=== PATIENT | male | born 1930 | race Caucasian/White ===

== ENCOUNTER → 2016-09-22 | Outpatient (CLI) | payer MEDICARE, BC ==
[2016-09-22 12:45] LABS: CH 30.9; CHCM 33.2; HCT 43.1 % (39.0-53.0); HDW 2.23; HGB 14.2 gm/dL (13.0-17.5); MCH 30.9 pg (25.0-35.0); MCV 93.7 fL (80.0-100.0); Mean Platelet Volume 7.4; RDW 12.6 % (11.5-15.5)
[2016-09-22 12:49] LABS: Calcium 9.3 mg/dL (8.4-10.2); Potassium 4.2 mmol/L (3.5-5.1); Total Bilirubin 0.7 mg/dL (0.2-1.3); Total Protein 7.4 g/dL (6.3-8.2)
[2016-09-22 14:21] LABS: Hemoglobin A1C 6.1 % (4.2-6.1)
[2016-09-27 20:02] LABS: Mercury Whole Blood < 2 mcg/L (< 11)
== END | disposition home or self-care (01) ==
LOC: LABWHC1 11:44
PROVIDERS: ATTEND Internal Medicine
DX: E11.22 Type 2 diabetes mellitus with diabetic chronic kidney disease (principal); N18.3 Chronic kidney disease, stage 3 (moderate); G62.9 Polyneuropathy, unspecified
CPT/HCPCS: 36415; 80053; 82175; 82570; 83036; 83655; 83825; 84165; 84443; 85027

== ENCOUNTER 2017-03-08 11:10 | Inpatient (IN) | payer MEDICARE, BC ==
[2017-03-08] MEDS ORDERED: ACETAMINOPHEN IV (For NPO) 1,000 MG in EMPTY BAG 1 BAG IVPB STA (11:34)
--- NOTE | 2017-03-08 11:50 | ED ---
General Adult HPI - General Chief complaint: Weakness Stated complaint: Weakness Time Seen by Provider: 03/08/17 11:33 Source: patient, RN notes reviewed, old records reviewed Mode of arrival: EMS Limitations: no limitations - History of Present Illness Initial comments: This is a 86-year-old male here for evaluation. Patient coming in for evaluation of weakness and abdominal cramping. Patient has history of diabetes type impression high cholesterol. No cough congestion, no nausea vomiting or diarrhea. No history of abdominal surgeries. Patient has mild suprapubic abdominal pain. Difficulty with urination. Patient also notes fever and sweating that started today - Related Data Home Medications Medication Instructions Recorded Confirmed Atorvastatin [Lipitor] 10 mg PO MOWEFR 02/01/17 03/08/17 Clopidogrel [Plavix] 75 mg PO DAILY 02/01/17 03/08/17 Losartan Potassium [Cozaar] 25 mg PO DAILY 02/01/17 03/08/17 Saw Brandon 500 - 1,000 mg PO DAILY PRN 02/01/17 03/08/17 metFORMIN HCL [Glucophage] 500 mg PO DAILY 02/01/17 03/08/17 Loratadine [Claritin] 10 mg PO DAILY PRN 03/08/17 03/08/17 Multivitamins, Thera [Multivitamin 1 tab PO DAILY 03/08/17 03/08/17 (formulary)] Omeprazole [PriLOSEC] 20 mg PO AC-BRKFST 03/08/17 03/08/17 Tetrahydrozoline 0.05% Ophth 1 drop BOTH EYES QID PRN 03/08/17 03/08/17 [Visine Eye Drops] Allergies Allergy/AdvReac Type Severity Reaction Status Date / Time No Known Allergies Allergy Verified 03/08/17 11:56 Review of Systems ROS Statement: Those systems with pertinent positive or pertinent negative responses have been documented in the HPI. ROS Other: All systems not noted in ROS Statement are negative. Past Medical History Past Medical History: Diabetes Mellitus, Hyperlipidemia, Hypertension Additional Past Medical History / Comment(s): Neuropathy, TIA, History of Any Multi-Drug Resistant Organisms: None Reported Past Surgical History: Orthopedic Surgery Additional Past Surgical History / Comment(s): Surgery on left wrist, skin ca removal. Past Psychological History: No Psychological Hx Reported Smoking Status: Never smoker Past Alcohol Use History: None Reported Past Drug Use History: None Reported General Exam Limitations: no limitations General appearance: alert, in no apparent distress Head exam: Present: atraumatic, normocephalic, normal inspection Eye exam: Present: normal appearance, PERRL, EOMI. Absent: scleral icterus, conjunctival injection, periorbital swelling ENT exam: Present: normal exam, mucous membranes dry Neck exam: Present: normal inspection. Absent: tenderness, meningismus, lymphadenopathy Respiratory exam: Present: normal lung sounds bilaterally. Absent: respiratory distress, wheezes, rales, rhonchi, stridor Cardiovascular Exam: Present: regular rate, normal rhythm, normal heart sounds. Absent: systolic murmur, diastolic murmur, rubs, gallop, clicks GI/Abdominal exam: Present: soft, normal bowel sounds. Absent: distended, tenderness, guarding, rebound, rigid Extremities exam: Present: normal inspection, full ROM, normal capillary refill. Absent: tenderness, pedal edema, joint swelling, calf tenderness Back exam: Present: normal inspection Neurological exam: Present: alert, oriented X3, CN II-XII intact Psychiatric exam: Present: normal affect, normal mood Skin exam: Present: warm, dry, intact, normal color. Absent: rash Course Vital Signs 03/08/17 03/08/17 03/08/17 11:18 12:21 13:00 Temperature 102.3 F H Pulse Rate 109 H 91 95 Respiratory 17 18 18 Rate Blood Pressure 137/80 137/71 135/74 O2 Sat by Pulse 96 98 96 Oximetry 03/08/17 14:00 Temperature 98.4 F Pulse Rate 88 Respiratory 18 Rate Blood Pressure 126/66 O2 Sat by Pulse 96 Oximetry - Reevaluation(s) Reevaluation #1: 03/08/17 12:56 At this point patient is feeling better with fever control, IV fluid EKG Findings - EKG Comments: EKG Findings:: EKG shows sinus tachycardia rate of 104, [place] 188, QRS 80, QTC 431 Medical Decision Making - Medical Decision Making 86 male to the emergency room for evaluation. Patient has suprapubic abdominal pain mild. Patient has fever, will be admitted for IV antibiotics, fluid resuscitation, rule out bacteremia - Lab Data Result diagrams: 03/08/17 11:24 03/08/17 11:24 Lab Results 03/08/17 03/08/17 03/08/17 Range/Units 11:24 11:24 11:24 WBC 19.3 H (3.8-10.6) k/uL RBC 4.62 (4.30-5.90) m/uL Hgb 14.4 (13.0-17.5) gm/dL Hct 43.8 (39.0-53.0) % MCV 94.8 (80.0-100.0) fL MCH 31.1 (25.0-35.0) pg MCHC 32.8 (31.0-37.0) g/dL RDW 12.9 (11.5-15.5) % Plt Count 248 (150-450) k/uL Neutrophils % 91 % Lymphocytes % 3 % Monocytes % 5 % Eosinophils % 1 % Basophils % 0 % Neutrophils # 17.6 H (1.3-7.7) k/uL Lymphocytes # 0.6 L (1.0-4.8) k/uL Monocytes # 0.9 (0-1.0) k/uL Eosinophils # 0.1 (0-0.7) k/uL Basophils # 0.0 (0-0.2) k/uL PT (9.0-12.0) sec INR (<1.1) APTT (22.0-30.0) sec Sodium 142 (137-145) mmol/L Potassium 4.3 (3.5-5.1) mmol/L Chloride 107 (98-107) mmol/L Carbon Dioxide 22 (22-30) mmol/L Anion Gap 13 mmol/L BUN 23 H (9-20) mg/dL Creatinine 1.58 H (0.66-1.25) mg/dL Est GFR (MDRD) Af Amer 50 (>60 ml/min/1.73 sqM) Est GFR (MDRD) Non-Af 42 (>60 ml/min/1.73 sqM) Glucose 111 H (74-99) mg/dL Plasma Lactic Acid Michael (0.7-2.0) mmol/L Calcium 9.5 (8.4-10.2) mg/dL Phosphorus 3.0 (2.5-4.5) mg/dL Magnesium 1.9 (1.6-2.3) mg/dL Total Bilirubin 0.9 (0.2-1.3) mg/dL AST 24 (17-59) U/L ALT 34 (21-72) U/L Alkaline Phosphatase 63 (38-126) U/L Total Creatine Kinase 83 (55-170) U/L CK-MB (CK-2) 1.7 (0.0-2.4) ng/mL CK-MB (CK-2) Rel Index 2.0 Troponin I 0.023 (0.000-0.034) ng/mL Total Protein 7.3 (6.3-8.2) g/dL Albumin 4.2 (3.5-5.0) g/dL Urine Color Urine Appearance (Clear) Urine pH (5.0-8.0) Ur Specific [place] (1.001-1.035) Urine Protein (Negative) Urine Glucose (UA) (Negative) Urine Ketones (Negative) Urine Blood (Negative) Urine Nitrite (Negative) Urine Bilirubin (Negative) Urine Urobilinogen (<2.0) mg/dL Ur Leukocyte Esterase (Negative) Urine RBC (0-5) /hpf Urine WBC (0-5) /hpf Ur Squamous Epith Cells (0-4) /hpf Urine Bacteria (None) /hpf Urine Mucus (None) /hpf 03/08/17 03/08/17 03/08/17 Range/Units 11:24 11:24 12:40 WBC (3.8-10.6) k/uL RBC (4.30-5.90) m/uL Hgb (13.0-17.5) gm/dL Hct (39.0-53.0) % MCV (80.0-100.0) fL MCH (25.0-35.0) pg MCHC (31.0-37.0) g/dL RDW (11.5-15.5) % Plt Count (150-450) k/uL Neutrophils % % Lymphocytes % % Monocytes % % Eosinophils % % Basophils % % Neutrophils # (1.3-7.7) k/uL Lymphocytes # (1.0-4.8) k/uL Monocytes # (0-1.0) k/uL Eosinophils # (0-0.7) k/uL Basophils # (0-0.2) k/uL PT 12.0 (9.0-12.0) sec INR 1.2 (<1.1) APTT 25.7 (22.0-30.0) sec Sodium (137-145) mmol/L Potassium (3.5-5.1) mmol/L Chloride (98-107) mmol/L Carbon Dioxide (22-30) mmol/L Anion Gap mmol/L BUN (9-20) mg/dL Creatinine (0.66-1.25) mg/dL Est GFR (MDRD) Af Amer (>60 ml/min/1.73 sqM) Est GFR (MDRD) Non-Af (>60 ml/min/1.73 sqM) Glucose (74-99) mg/dL Plasma Lactic Acid Michael 1.6 (0.7-2.0) mmol/L Calcium (8.4-10.2) mg/dL Phosphorus (2.5-4.5) mg/dL Magnesium (1.6-2.3) mg/dL Total Bilirubin (0.2-1.3) mg/dL AST (17-59) U/L ALT (21-72) U/L Alkaline Phosphatase (38-126) U/L Total Creatine Kinase (55-170) U/L CK-MB (CK-2) (0.0-2.4) ng/mL CK-MB (CK-2) Rel Index Troponin I (0.000-0.034) ng/mL Total Protein (6.3-8.2) g/dL Albumin (3.5-5.0) g/dL Urine Color Yellow Urine Appearance Clear (Clear) Urine pH 5.5 (5.0-8.0) Ur Specific [place] 1.016 (1.001-1.035) Urine Protein Negative (Negative) Urine Glucose (UA) Negative (Negative) Urine Ketones Negative (Negative) Urine Blood Small H (Negative) Urine Nitrite Negative (Negative) Urine Bilirubin Negative (Negative) Urine Urobilinogen <2.0 (<2.0) mg/dL Ur Leukocyte Esterase Negative (Negative) Urine RBC 7 H (0-5) /hpf Urine WBC <1 (0-5) /hpf Ur Squamous Epith Cells <1 (0-4) /hpf Urine Bacteria Rare H (None) /hpf Urine Mucus Occasional H (None) /hpf - Radiology Data Radiology results: report reviewed (Chest x-ray is negative for acute disease, CT head and pelvis positive for diverticulitis), image reviewed Disposition Clinical Impression: Fever, Sepsis, ARF (acute renal failure), Diverticulitis Disposition: ADMITTED IP TO THIS HOSP Condition: Fair
[2017-03-08 12:00] LABS: Basophils % (A) 0 %; CH 31.1; Calcium 9.5 mg/dL (8.4-10.2); Eosinophils # (A) 0.1 k/uL (0-0.7); Eosinophils % (A) 1 %; HCT 43.8 % (39.0-53.0); HGB 14.4 gm/dL (13.0-17.5); Luc # (Auto) 0.09; Luc % (Auto) 0; Lymphocytes # (A) 0.6 k/uL (1.0-4.8); Lymphocytes % (A) 3 %; MCH 31.1 pg (25.0-35.0); MCHC 32.8 g/dL (31.0-37.0); MCV 94.8 fL (80.0-100.0); Magnesium 1.9 mg/dL (1.6-2.3); Mean Platelet Volume 7.4; Monocytes # (A) 0.9 k/uL (0-1.0); Monocytes % (A) 5 %; Neutrophils # (A) 17.6 k/uL (1.3-7.7); Neutrophils % (A) 91 %; Potassium 4.3 mmol/L (3.5-5.1); RBC 4.62 m/uL (4.30-5.90); RDW 12.9 % (11.5-15.5); Total Bilirubin 0.9 mg/dL (0.2-1.3); Total Protein 7.3 g/dL (6.3-8.2); WBC 19.3 k/uL (3.8-10.6); WBC (Perox) 18.79
[2017-03-08 12:08] LABS: INR 1.2 (<1.1); Partial Thromboplastin Time 25.7 sec (22.0-30.0)
[2017-03-08 12:19] LABS: Creatine Kinase MB 1.7 ng/mL (0.0-2.4); Troponin I 0.023 ng/mL (0.000-0.034)
--- NOTE | 2017-03-08 12:23 | XR ---
EXAMINATION TYPE: XR chest 2V DATE OF EXAM: 03/08/2017 HISTORY: Weakness. REFERENCE: Previous study dated 06/01/2011. FINDINGS: The heart is enlarged. There is vascular congestion without rodo edema. There is blunting of both CP angles and I cannot exclude small effusions. IMPRESSION: 1. CARDIOMEGALY. 2. VASCULAR CONGESTION.
[2017-03-08] MEDS ORDERED: AZITHROMYCIN 500 MG in SODIUM CHLORIDE 0.9% 250 ML IVPB STA (12:36)
[2017-03-08] MEDS ORDERED: SODIUM CHLORIDE 0.9% 1,000 ML IV ONE ×2 (12:52→13:25)
[2017-03-08] MEDS ORDERED: ONDANSETRON 4 MG/2 ML VIAL IVP STA (12:53)
[2017-03-08] MEDS ORDERED: MORPHINE SULFATE 4 MG/ML SYRINGE IVP PRN (12:53)
[2017-03-08] MEDS ORDERED: ONDANSETRON 4 MG/2 ML VIAL IVP PRN (12:53)
[2017-03-08] MEDS ORDERED: MORPHINE SULFATE 4 MG/ML SYRINGE IVP STA (12:53)
[2017-03-08 12:58] LABS: Appearance,Urine Clear (Clear); Bacteria,Urine Rare /hpf; Bilirubin,Urine Negative (Negative); Glucose,Urine (UA) Negative (Negative); Ketones,Urine Negative (Negative); Leukocyte Esterase,Urine Negative (Negative); Mucus,Urine Occasional /hpf; Nitrite,Urine Negative (Negative); PH, Urine 5.5 (5.0-8.0); Particle Count 2117; Protein,Urine Negative (Negative); RBC,Urine 7 /hpf (0-5); Specific Gravity,Urine 1.016 (1.001-1.035); Squamous Epithelial Cell,Urine <1 /hpf (0-4); UA Billing (MACRO vs. MICRO) MICRO; Urobilinogen,Urine <2.0 mg/dL (<2.0); WBC,Urine <1 /hpf (0-5)
[2017-03-08] MEDS ORDERED: RX INFO: IV CONTRAST WAS GIVEN 1 EACH MISC MISCELLANE PRN (13:01)
[2017-03-08] MEDS ORDERED: SODIUM CHLORIDE 0.9% 500 ML IV ONE (13:25)
[2017-03-08] MEDS ORDERED: LEVOFLOXACIN 750MG-D5W PMX 750 MG in DEXTROSE/WATER 1 150ML.BAG IVPB SCH (15:00)
--- NOTE | 2017-03-08 15:37 | CT ---
EXAMINATION TYPE: CT abdomen pelvis w con DATE OF EXAM: 03/08/2017 COMPARISON: NONE HISTORY: Abdominal pain, fever, abnormal white count CT DLP: 1658.7 mGycm Automated exposure control for dose reduction was used. TECHNIQUE: Helical acquisition of images from the lung bases through the pelvis have been completed. CONTRAST: Patient received 50 cc Visipaque [id number] IV. FINDINGS: LUNG BASES: Some minimal dependent atelectatic changes are present. AORTA: No significant abnormality is appreciated. LIVER/GB: The liver shows low attenuation possibly due to fatty infiltration, gallbladder is normal. PANCREAS: No significant abnormality is seen. SPLEEN: No significant abnormality is seen. ADRENALS: No significant abnormality is seen. KIDNEYS: There is a cortical cyst associated with the lower pole the right kidney measuring approxima tely 2.5 cm. REPRODUCTIVE ORGANS: No significant abnormality is seen BOWEL: Extensive diverticular changes associated with the sigmoid colon. Sigmoid colon shows wall th ickening in the right lower quadrant. There is groundglass opacity within the pericolonic fat in the right lower quadrant. The appendix is thought to be normal. No evident bowel obstruction. Colonic int erposition present anterior to the liver. FREE AIR: No Free Air visible. ASCITES: None visible. PELVIC ADENOPATHY: None visualized. RETROPERITONEAL ADENOPATHY: No Retroperitoneal Adenopathy visible. URINARY BLADDER: No significant abnormality is seen. OSSEOUS STRUCTURES: Degenerative disc changes are present in the visualized spine. Spondylolysis pre sent at the lower lumbar spine, anterolisthesis grade 1 is present. Suspect a transitional vertebral body. Schmorl's node present at the inferior endplate of first lumbar vertebral body. An umbilical hernia containing fat is present IMPRESSION: DIVERTICULITIS WITHOUT ABSCESS.
[2017-03-08] MEDS: PIPERACILLIN-TAZOBACTAM 3.375 GM in DEXTROSE/WATER 1 50ML.BAG IVPB SCH (16:53)
[2017-03-08] MEDS: metroNIDAZOLE-NS PMX 500 MG in SALINE 1 100ML.BAG IVPB SCH (16:57)
[2017-03-08 17:05] LABS: Glucose,Whole Blood 92 mg/dL (75-99)
[2017-03-08] MEDS ORDERED: TETRAHYDROZOLINE 0.05% OPHTH DROPS 15 ML BTL BOTH EYES PRN (17:28)
[2017-03-08] MEDS: INSULIN LISPRO (humaLOG) 300 UNIT/3 ML VIAL SQ SCH (17:39)
[2017-03-08 20:09] LABS: Glucose,Whole Blood 137 mg/dL (75-99)
[2017-03-08 21:33] LABS: Hemoglobin A1C 6.3 % (4.2-6.1)
--- NOTE | 2017-03-08 22:26 | HP ---
DATE OF ADMISSION: 03/08/2017 CHIEF COMPLAINT: Abdominal pain. HISTORY OF PRESENT ILLNESS: This gentleman was feeling fairly well until yesterday evening, when he said he had to have 4 well-formed stools, which was unusual for him. He started with having a lower abdominal pain. The pain was across the lower abdomen. He had no associated nausea, vomiting or any rectal bleeding or mucus in the stool. The patient said he subsequently started having some chills, and due to this he presents to the hospital this morning. He again had some more chills. He is noted to be febrile in the emergency room. The patient's workup in the emergency room included a CT scan of the abdomen which reveals sigmoid diverticulosis, yet it mentions diverticulitis, more in the right lower quadrant. CT scan suggests extensive diverticular changes associated with the sigmoid colon. Sigmoid colon shows wall thickening in the right lower quadrant. There is a ground-glass opacity within the pericolonic fat in the right lower quadrant. The appendix is felt to be normal. The patient has some tenderness in the right lower quadrant area. No rebound tenderness. The patient is, as mentioned above, febrile. No nausea or vomiting. In view of above, he is admitted to the hospital. He does also have leukocytosis. Past medical history is primarily significant for: 1. Hypertension. 2. Peripheral neuritis. 3. Diabetes mellitus. 4. History of sleep apnea, on CPAP. 5. Colonic diverticulosis. 6. His last colonoscopy was in 2005. 7. 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 Past surgical history is significant for cataract surgery; otherwise, no other surgeries. PERSONAL HISTORY: Never a smoker. No alcohol. ALLERGIES: NONE KNOWN. Medications do include: 1. Losartan 25 mg daily. 2. Metformin 500 mg daily. 3. Prilosec 20 mg daily. 4. Visine eye drops. 5. Multivitamins. 6. Claritin. 7. Saw palmetto. 8. Plavix 75 mg daily. 9. Lipitor 10 mg daily. SOCIAL HISTORY: Patient is . Lives alone. Retired businessman. FAMILY MEDICAL HISTORY: Father at the age of 58. He had ( ), hypertension. Mother with a history of gallbladder disease. She was 62. He has a brother, 82 years of age, in adequate health. A brother has had a history of colitis. The patient has one son in good health, 2 daughters, one decreased. She had a history of hypertension and obesity. Other daughter is in good health. REVIEW OF SYSTEMS: NEURO: Denies any headaches, dizziness. No double vision, blurred vision. No symptoms of TIA, syncope or seizures. He does have history of peripheral neuritis and some unsteadiness on walking with the neuritis, and he does use a cane. PSYCH: No anxiety, depression. CARDIAC: No chest pain, angina, palpitation. RESPIRATORY: No shortness of breath, cough, hemoptysis. GI: No nausea, vomiting, heartburn, Present symptoms of lower abdominal pain with 4 bowel movements yesterday with no blood or mucus in the stool. : No symptoms of dysuria, hematuria. He has a slower stream. He does use saw palmetto. EXTREMITIES: Mild chronic edema. He has peripheral neuropathy with sensory loss changes below the knees. MUSCULOSKELETAL: Chronic mild arthritic symptoms, tolerable. SKIN: No open sores or rashes. ENT: Decreased hearing. Adequate vision. PHYSICAL EXAMINATION: Pleasant gentleman, at present sitting up in the chair in no distress. Vital signs reveal temperature 99.2; it was 98.6 earlier. Pulse 79, respiration 20, blood pressure 126/66, pulse ox 99% on room air. At the time of ER evaluation, patient had a temperature of 102.3 with a pulse of 99, blood pressure 137/80, pulse ox 96%. HEENT: Normocephalic. Neck is supple. Pupils are reactive. Oral cavity is dry. Neck reveals no JVD. No carotid bruits. No thyromegaly. Chest examination is clear to auscultation and percussion. CARDIAC: Normal S1, S2 with no gallops. Systolic murmur 2/6, left sternal border. ABDOMEN: Mildly protuberant. Tender lower abdomen with mild guarding. No rebound tenderness. Bowel sounds are active. Extremities reveal trace edema. Neurologically awake, alert, oriented x3 with well-coordinated movements. LABORATORY ASSESSMENT: CBC showed a white count of 19.3, hemoglobin 14.4. PT and PTT were normal. Electrolytes were normal. BUN 23, creatinine 1.58. Glucose 111. Liver functions are normal. Troponin negative. Albumin 4.2. Urinalysis with [address] scan as mentioned above. Chest x-ray shows cardiomegaly with some vascular congestion without rodo edema. EKG reveals no acute changes. He has a sinus rhythm with some PACs. ASSESSMENT: 1. Lower abdominal pain, probably acute diverticulitis. 2. Diabetes mellitus. 3. Chronic kidney disease, stage III. 4. History of peripheral neuropathy. PLAN: Continue present medical regimen with IV hydration, IV antibiotic Zosyn. Patient to be on clear liquids. Will closely follow the patient's status. Prognosis remains guarded. Patient's condition discussed with the patient.
[2017-03-09] MEDS: metroNIDAZOLE-NS PMX 500 MG in SALINE 1 100ML.BAG IVPB SCH ×4 (00:40→23:00)
[2017-03-09] MEDS: PIPERACILLIN-TAZOBACTAM 3.375 GM in DEXTROSE/WATER 1 50ML.BAG IVPB SCH ×3 (00:40→17:54)
[2017-03-09] MEDS: ACETAMINOPHEN TAB 325 MG TAB PO PRN ×3 (03:09→20:38)
[2017-03-09 07:25] LABS: Glucose,Whole Blood 98 mg/dL (75-99)
[2017-03-09] MEDS ORDERED: NON-FORMULARY DRUG (Omeprazole 20 MG) PO SCH (07:30)
[2017-03-09] MEDS: LOSARTAN 25 MG TAB PO SCH (07:33)
[2017-03-09] MEDS: ENOXAPARIN 40 MG/0.4 ML SYRINGE SQ SCH (07:33)
[2017-03-09] MEDS: PANTOPRAZOLE 40 MG/10 ML VIAL IVP SCH (07:33)
[2017-03-09] MEDS: INSULIN LISPRO (humaLOG) 300 UNIT/3 ML VIAL SQ SCH ×3 (07:39→17:57)
[2017-03-09 11:16] LABS: Glucose,Whole Blood 113 mg/dL (75-99)
[2017-03-09 17:18] LABS: Glucose,Whole Blood 106 mg/dL (75-99)
[2017-03-09 20:27] LABS: Glucose,Whole Blood 130 mg/dL (75-99)
[2017-03-10] MEDS: PIPERACILLIN-TAZOBACTAM 3.375 GM in DEXTROSE/WATER 1 50ML.BAG IVPB SCH ×3 (00:20→17:41)
[2017-03-10 07:14] LABS: Glucose,Whole Blood 94 mg/dL (75-99)
[2017-03-10 07:50] LABS: CH 30.7; CHCM 32.9; HCT 37.2 % (39.0-53.0); HDW 2.29; HGB 12.9 gm/dL (13.0-17.5); MCH 32.5 pg (25.0-35.0); MCHC 34.6 g/dL (31.0-37.0); MCV 93.8 fL (80.0-100.0); Mean Platelet Volume 7.3; RBC 3.97 m/uL (4.30-5.90); RDW 12.7 % (11.5-15.5); WBC 8.4 k/uL (3.8-10.6)
--- NOTE | 2017-03-10 08:11 | P.PN ---
Subjective Principal diagnosis: Acute diverticulitis History present illness: This 86-year-old gentleman was admitted to the hospital with lower abdominal pain associated with fever, leukocytosis but no loss of appetite or nausea vomiting. Evaluation suggests acute diverticulitis. The patient is a significantly redundant sigmoid colon with multiple diverticuli. No abscess formation noted. Patient is on Zosyn and Flagyl. His temperature is defervescening and patient is feeling better . Denies any abdominal pain nausea vomiting. No further fevers chills since last night. He had a temperature 100.6 last evening he does feel weak and thinks is getting stronger his been able to get out of bed patient denies any other symptoms. No bowel movement yet. He does feel hungry REVIEW OF SYSTEMS: Neuro: Denies any headaches dizziness. Psych: Denies anxiety depression feels oriented. Cardiac: Denies chest pain and angina palpitations. Respiratory: Denies shortness of breath cough. GI: Denies nausea vomiting or abdominal pain. No diarrhea or constipation, no bowel movement yet. : Denies dysuria hematuria. Extremities: Denies pain. No edema. Skin: Intact. Constitutional: Low-grade fever last night and no chills Objective - Vital Signs Vital signs: Vital Signs Temp 98.2 F 03/10/17 07:00 Pulse 57 L 03/10/17 07:00 Resp 18 03/10/17 07:00 BP 130/69 03/10/17 07:00 Pulse Ox 96 03/10/17 07:00 Intake & Output 03/09/17 03/10/17 03/10/17 18:59 06:59 18:59 Intake Total 240 390 Output Total 600 400 Balance -360 -10 Intake: Intake, IV Titration 150 Amount Piperacillin-Tazobactam 3 50 .375 gm In Dextrose/Water 1 50ml.bag @ 12.5 mls/hr IVPB Q8HR THUY Rx#: [id number] metroNIDAZOLE-NS PMX 500 100 mg In Saline 1 100ml.bag @ 100 mls/hr IVPB Q8HR THUY Rx#:[id number] Oral 240 240 Output: Urine 600 400 Other: Voiding Method Urinal Urinal Incontinent # Voids 1 3 PHYSICAL EXAMINATION: Cooperative, at present in no acute distress. HEENT: Neck supple. No JVD. Chest: Clear to auscultation percussion. Cardiac: Normal S1-S2 no gallops no murmur . Abdomen: Mild tenderness right of midline suprapubic area with guarding but no rebound tenderness bowel sounds present. Extremities: No edema no tenderness Neurologically: Awake, alert, oriented with well-coordinated movements. - Labs CBC & Chem 7: 03/08/17 11:24 03/08/17 11:24 Labs: Abnormal Lab Results - Last 24 Hours (Table) 03/09/17 03/09/17 03/09/17 Range/Units 11:06 17:07 20:25 POC Glucose (mg/dL) 113 H 106 H 130 H (75-99) mg/dL Microbiology - Last 24 Hours (Table) 03/08/17 12:40 Urine Culture - Final Urine,Voided 03/08/17 11:24 Blood Culture - Preliminary Blood No Growth after 24 hours Assessment and Plan Plan: ASSESSMENT: 1. Acute diverticulitis of the colon. 2. Diabetes mellitus. 3. Chronic kidney disease stage III. 4. History of peripheral neuropathy. PLAN: Continue present medical regimen patient's condition discussed with the patient prognosis remains guarded patient diet be advanced to full liquids. Await results of CBC and BMP. Patient condition and plan of care reviewed in detail with patient.
[2017-03-10 08:15] LABS: Calcium 8.2 mg/dL (8.4-10.2); Potassium 3.8 mmol/L (3.5-5.1)
--- NOTE | 2017-03-10 08:55 | PN ---
CHIEF COMPLAINT: Re-evaluation. HISTORY OF PRESENT ILLNESS: An 86-year-old gentleman was admitted to the hospital with lower abdominal pain, fever, chills, and CAT scan findings suggestive of diverticulitis. I did review the patient's CAT scan with radiologist today as the report was somewhat confusing. The patient's sigmoid colon does extend to the right lower quadrant. The patient has multiple diverticula. He has a very redundant colon. The appendix appears normal. REVIEW OF SYSTEMS: NEURO: Denies any headaches, dizziness. PSYCH: No anxiety, depression. CARDIAC: No chest pain, angina, palpitation. RESPIRATORY: Denies shortness of breath, cough. GI: No nausea, vomiting. Does have some lower abdominal pain. No diarrhea. No bowel movement. : No symptoms of dysuria, hematuria. Does have some frequency. EXTREMITIES: Denies pain or edema. CONSTITUTIONAL: Some fever and chills. PHYSICAL EXAMINATION: Pleasant gentleman in no distress. VITAL SIGNS: Temperature 100.9, pulse 93, respirations 20, blood pressure 151/88, pulse ox 99% on 2 liters. HEENT: Normocephalic. NECK: Supple. No JVD. Chest is clear to auscultation and percussion. CARDIAC: Normal S1, S2 with no gallops. Irregular rhythm. ABDOMEN: Protuberant, mild tenderness with no rebound tenderness lower abdomen. Bowel sounds are active. Extremities reveal no edema. No tenderness. NEUROLOGICAL: Awake, alert, oriented with well coordinated movements. Laboratory assessment: None new. Blood sugar is adequately controlled. ASSESSMENT: 1. Acute diverticulitis. 2. Diabetes mellitus. 3. History of hypertension. PLAN: The patient is stable. Continue present medical regimen. The patient's condition discussed with the patient. Prognosis guarded. Continue present medication Zosyn. Continue clear liquids. The patient's condition was discussed with the patient. Answered all questions to his understanding.
[2017-03-10] MEDS: INSULIN LISPRO (humaLOG) 300 UNIT/3 ML VIAL SQ SCH ×3 (09:12→17:21)
[2017-03-10] MEDS: metroNIDAZOLE-NS PMX 500 MG in SALINE 1 100ML.BAG IVPB SCH ×3 (09:13→23:21)
[2017-03-10] MEDS: ENOXAPARIN 40 MG/0.4 ML SYRINGE SQ SCH (09:14)
[2017-03-10] MEDS: PANTOPRAZOLE 40 MG/10 ML VIAL IVP SCH (09:14)
[2017-03-10] MEDS: LOSARTAN 25 MG TAB PO SCH (09:14)
[2017-03-10 11:19] LABS: Glucose,Whole Blood 109 mg/dL (75-99)
[2017-03-10 17:13] LABS: Glucose,Whole Blood 102 mg/dL (75-99)
[2017-03-10 20:56] LABS: Glucose,Whole Blood 132 mg/dL (75-99)
[2017-03-10 23:27] VITALS: RESP 16
[2017-03-11] MEDS: PIPERACILLIN-TAZOBACTAM 3.375 GM in DEXTROSE/WATER 1 50ML.BAG IVPB SCH ×4 (00:49→23:26)
[2017-03-11 07:28] LABS: Glucose,Whole Blood 83 mg/dL (75-99)
[2017-03-11] MEDS: INSULIN LISPRO (humaLOG) 300 UNIT/3 ML VIAL SQ SCH ×3 (08:05→17:54)
--- NOTE | 2017-03-11 09:57 | US ---
EXAMINATION TYPE: US venous doppler duplex LE LT DATE OF EXAM: 03/11/2017 9:22 AM COMPARISON: Right lower extremity venous ultrasound February 07, 2015 CLINICAL HISTORY: pain. Left leg pain since last night-- No hx of blood clots. On blood thinners. SIDE PERFORMED: Left TECHNIQUE: The lower extremity deep venous system is examined utilizing real time linear array sonog love with graded compression, doppler sonography and color-flow sonography. VESSELS IMAGED: External Iliac Vein (EIV) Common Femoral Vein Deep Femoral Vein Greater Saphenous Vein * Femoral Vein Popliteal Vein Small Saphenous Vein * Proximal Calf Veins (* superficial vessels) Left Leg: Appears negative for DVT Grayscale, color doppler, spectral doppler imaging performed of the deep veins of the left lower extr emity. There is normal flow, compressibility, vascular waveforms in the left lower extremity. IMPRESSION: No ultrasound evidence for acute DVT in the left lower extremity.
[2017-03-11] MEDS: metroNIDAZOLE 500 MG TAB PO SCH ×3 (10:00→23:26)
[2017-03-11] MEDS: LOSARTAN 25 MG TAB PO SCH (10:00)
[2017-03-11] MEDS: PANTOPRAZOLE 40 MG TABLET PO SCH (10:00)
[2017-03-11] MEDS: ENOXAPARIN 40 MG/0.4 ML SYRINGE SQ SCH (10:01)
[2017-03-11 12:02] LABS: Glucose,Whole Blood 98 mg/dL (75-99)
[2017-03-11 17:32] LABS: Glucose,Whole Blood 116 mg/dL (75-99)
[2017-03-11 20:44] LABS: Glucose,Whole Blood 121 mg/dL (75-99)
--- NOTE | 2017-03-12 07:03 | PN ---
CHIEF COMPLAINT: Re-evaluation. HISTORY OF PRESENT ILLNESS: This is an 86-year-old gentleman was admitted to the hospital with fever, chills and lower abdominal pain. The patient was noted to have evidence suggestive of acute diverticulitis. The patient's white count has come back to normal. He is feeling much better today. He complains of some pain in the left leg. The patient has no evidence of swelling. Mild tenderness. REVIEW OF SYSTEMS: NEURO: Denies any headaches, dizziness. PSYCH: No anxiety. CARDIAC: No chest pain, angina, palpitation. RESPIRATORY: No shortness of breath, cough. GI: No nausea, vomiting, abdominal pain, diarrhea. : No symptoms of dysuria, hematuria. EXTREMITIES: No pain or edema. CONSTITUTIONAL: No fever or chills. PHYSICAL EXAMINATION: Pleasant gentleman in no distress. Vital signs are stable with no further fevers. The patient's temperature 97.6, pulse 51, respirations 16, blood pressure 134/81, pulse ox of 95% on room air. HEENT: Normocephalic. NECK: No JVD. Chest is clear to auscultation. CARDIAC: Normal S1, S2 with no gallops, murmurs. Regular rhythm. ABDOMEN: Soft. Bowel sounds present. Extremities reveal no edema. No tenderness. NEUROLOGICAL: Awake, alert, oriented with well coordinated movements. LABORATORY ASSESSMENT: Blood sugars which are fairly well. ASSESSMENT: 1. Resolving acute diverticulitis. 2. Diabetes mellitus. 3. Hypertension. 4. History of peripheral neuropathy. 5. Pain in left leg. PLAN: Continue present medical regimen. Patient will have an ultrasound of the left leg done to rule out DVT. The patient has been on DVT prophylaxis. The patient did have a venous ultrasound which reveals no evidence of DVT. Continue present medical regimen. The patient's condition discussed with the patient. Prognosis remains guarded. Patient will be discharged home tomorrow. I was called later by the case cyber policy and strategy planner that the patient wished to go to [facility]. The patient in my opinion is not a candidate for [facility] which is an inpatient aggressive rehab and he will not qualify for that because he has some debility from the acute illness but not enough for him to be in intensive rehab.
[2017-03-12 07:26] LABS: Glucose,Whole Blood 88 mg/dL (75-99)
[2017-03-12 08:36] VITALS: BP 156/71; PULSE 46; TEMP 98.1
[2017-03-12] MEDS: INSULIN LISPRO (humaLOG) 300 UNIT/3 ML VIAL SQ SCH (08:36)
[2017-03-12] MEDS: PIPERACILLIN-TAZOBACTAM 3.375 GM in DEXTROSE/WATER 1 50ML.BAG IVPB SCH (08:37)
[2017-03-12] MEDS: metroNIDAZOLE 500 MG TAB PO SCH (08:37)
[2017-03-12] MEDS: ENOXAPARIN 40 MG/0.4 ML SYRINGE SQ SCH (08:37)
[2017-03-12] MEDS: PANTOPRAZOLE 40 MG TABLET PO SCH (08:38)
[2017-03-12] MEDS: LOSARTAN 25 MG TAB PO SCH (08:38)
--- NOTE | 2017-03-12 10:01 | P.DS ---
Providers Date of admission: 03/08/17 12:55 Expected date of discharge: 03/12/17 Attending physician: Donny Pacheco Primary care physician: Donny Pacheco [facility] Course: This 86-year-old gentleman was admitted to the hospital with complaints of lower abdominal discomfort associated with fever and chills. Had no associated nausea vomiting. Therefore bowel movements which was unusual for him by the bowel movements were well formed. The patient following admission: Evaluation was noted to have symptoms signs and findings both physical and radiological suggestive of acute diverticulitis. Patient treated with Zosyn and Flagyl. His fever resolved his white count returned to normal and the patient was feeling better. He is at this time being transferred to nursing facility for rehab. The patient has a history of peripheral neuropathy and does have some difficulty in ambulation. The patient is feeling much improved prior to discharge. During the hospital stay his status was discussed with him in details. Patient does have history of diabetes mellitus well controlled. Final diagnosis to include 1. Acute colonic diverticulitis 2. Redundant sigmoid colon with multiple colonic diverticuli 3. Diabetes mellitus associated with peripheral neuropathy. 4. Peripheral neuropathy. 5. Leukocytosis secondary to diverticulitis resolved Patient Condition at Discharge: Fair Plan - Discharge Summary New Discharge Prescriptions: New Acetaminophen Tab [Tylenol] 650 mg PO Q6HR PRN tab PRN Reason: Fever And/ Or Pain Amoxicillin/Potassium Clav [Augmentin 500-125 Tablet] 1 tab PO Q12HR #14 tab Continue Saw [place] 500 - 1,000 mg PO DAILY PRN PRN Reason: Depending on urine flow Atorvastatin [Lipitor] 10 mg PO MOWEFR Losartan Potassium [Cozaar] 25 mg PO DAILY Clopidogrel [Plavix] 75 mg PO DAILY metFORMIN HCL [Glucophage] 500 mg PO DAILY Tetrahydrozoline 0.05% Ophth [[place] Eye Drops] 1 drop BOTH EYES QID PRN PRN Reason: dry eyes Multivitamins, Thera [Multivitamin (formulary)] 1 tab PO DAILY Loratadine [Claritin] 10 mg PO DAILY PRN PRN Reason: Allergy Symptoms Omeprazole [PriLOSEC] 20 mg PO -BRKRUST Discharge Medication List Atorvastatin [Lipitor] 10 mg PO MOWEFR 02/01/17 [History] Clopidogrel [Plavix] 75 mg PO DAILY 02/01/17 [History] Losartan Potassium [Cozaar] 25 mg PO DAILY 02/01/17 [History] Saw [place] 500 - 1,000 mg PO DAILY PRN 02/01/17 [History] metFORMIN HCL [Glucophage] 500 mg PO DAILY 02/01/17 [History] Loratadine [Claritin] 10 mg PO DAILY PRN 03/08/17 [History] Multivitamins, Thera [Multivitamin (formulary)] 1 tab PO DAILY 03/08/17 [History ] Omeprazole [PriLOSEC] 20 mg PO AC-BRKFST 03/08/17 [History] Tetrahydrozoline 0.05% Ophth [[place] Eye Drops] 1 drop BOTH EYES QID PRN [History] Acetaminophen Tab [Tylenol] 650 mg PO Q6HR PRN tab 03/12/17 [Rx] Amoxicillin/Potassium Clav [Augmentin 500-125 Tablet] 1 tab PO Q12HR #14 tab [Rx] Follow up Appointment(s)/Referral(s): Donny Pacheco MD [Primary Care Provider] - 1-2 days
[2017-03-12 12:03] LABS: Glucose,Whole Blood 112 mg/dL (75-99)
== END 2017-03-12 13:04 | DRG 392 ==
LOC: EC 11:10 → 4MS4W 12:55 → 5MS5E 13:32
PROVIDERS: ADMIT Internal Medicine; ATTEND Internal Medicine
DX: K57.32 Diverticulitis of large intestine without perforation or abscess without bleeding (principal); E11.22 Type 2 diabetes mellitus with diabetic chronic kidney disease; E11.42 Type 2 diabetes mellitus with diabetic polyneuropathy; Q43.8 Other specified congenital malformations of intestine; G47.30 Sleep apnea, unspecified; I12.9 Hypertensive chronic kidney disease with stage 1 through stage 4 chronic kidney disease, or unspecified chronic kidney disease; N18.3 Chronic kidney disease, stage 3 (moderate); Z82.49 Family history of ischemic heart disease and other diseases of the circulatory system; Z86.73 Personal history of transient ischemic attack (TIA), and cerebral infarction without residual deficits; Z79.01 Long term (current) use of anticoagulants; Z79.84 Long term (current) use of oral hypoglycemic drugs; Z79.899 Other long term (current) drug therapy; M79.605 Pain in left leg
CPT/HCPCS: 36415; 71020; 74177; 80048; 80053; 81001; 82550; 82553; 83036; 83605; 83735; 84100; 84484; 85025; 85027; 85610; 85730; 87040; 87086; 93005; 96365; 96367; 99285

== ENCOUNTER 2018-01-06 00:34 | Emergency (ER) | payer MEDICARE, BC ==
[2018-01-06 01:55] LABS: Basophils % (A) 0 %; Eosinophils # (A) 0.4 k/uL (0-0.7); Eosinophils % (A) 4 %; HCT 41.7 % (39.0-53.0); HGB 14.5 gm/dL (13.0-17.5); Lymphocytes # (A) 1.1 k/uL (1.0-4.8); Lymphocytes % (A) 10 %; MCH 31.3 pg (25.0-35.0); MCHC 34.8 g/dL (31.0-37.0); MCV 89.8 fL (80.0-100.0); Mean Platelet Volume 7.6; Monocytes # (A) 0.7 k/uL (0-1.0); Monocytes % (A) 7 %; Neutrophils # (A) 8.4 k/uL (1.3-7.7); Neutrophils % (A) 77 %; Platelet Count 334 k/uL (150-450); RBC 4.64 m/uL (4.30-5.90); RDW 13.8 % (11.5-15.5); WBC 10.9 k/uL (3.8-10.6)
[2018-01-06 01:56] LABS: Appearance,Urine Clear (Clear); Bilirubin,Urine Negative (Negative); Blood,Urine Small (Negative); Color,Urine Light Yellow; Glucose,Urine (UA) Negative (Negative); Ketones,Urine Negative (Negative); Leukocyte Esterase,Urine Negative (Negative); Mucus,Urine Rare /hpf; Nitrite,Urine Negative (Negative); Protein,Urine Negative (Negative); RBC,Urine 3 /hpf (0-5); Specific Gravity,Urine 1.011 (1.001-1.035); Squamous Epithelial Cell,Urine <1 /hpf (0-4); Urobilinogen,Urine <2.0 mg/dL (<2.0); WBC,Urine <1 /hpf (0-5)
[2018-01-06 02:12] LABS: Albumin 4.3 g/dL (3.5-5.0); Calcium 9.7 mg/dL (8.4-10.2); Potassium 4.6 mmol/L (3.5-5.1); Total Bilirubin 0.6 mg/dL (0.2-1.3); Total Protein 7.5 g/dL (6.3-8.2)
[2018-01-06 02:16] VITALS: PULSE 73; RESP 18
--- NOTE | 2018-01-06 02:24 | CT ---
EXAMINATION TYPE: CT abdomen pelvis wo con DATE OF EXAM: 01/06/2018 COMPARISON: 08/22/2017 HISTORY: LLQ pain CT DLP: 1111.20 mGycm Automated exposure control for dose reduction was used. TECHNIQUE: Helical acquisition of images was performed from the lung bases through the pelvis. FINDINGS: Lung bases are clear of consolidation. There is no pleural effusion. Heart size is normal. Liver spleen pancreas gallbladder appear normal. Bile ducts are not dilated. There is no adrenal mass. Kidneys have normal size. There is a 2 cm cortical cyst on the lower pole r ight kidney. There is no hydronephrosis. Ureters are not dilated. Abdominal aorta is atheromatous. Th ere is no evidence of aneurysm. There is no retroperitoneal adenopathy. There is no ascites. There is small umbilical hernia that contains fat. There are multiple diverticula in the descending colon and sigmoid colon. Bladder distends smoothly. There is no evidence of a pelvic mass. There is left side fluid in the upper scrotum that could be a hydrocele. There is very minimal fat stranding around the proximal sigmoid colon at the junction with the descen ding colon. I see no bony destructive process. 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 There is no compression fracture. IMPRESSION: EXTENSIVE COLONIC DIVERTICULOSIS. THERE IS EVIDENCE FOR SOME MILD DIVERTICULITIS IN THE PROXIMAL SIGMOID COLON THAT IS NEW COMPARED TO OLD EXAM. THERE IS CLEARING OF THE INFLAMMATORY CHANGES IN THE MID SIGMOID COLON COMPARED TO OLD EXAM . NO ABSCESS.
[2018-01-06] MEDS ORDERED: metroNIDAZOLE-NS PMX 500 MG in SALINE 1 100ML.BAG IVPB STA (02:42)
[2018-01-06] MEDS ORDERED: LEVOFLOXACIN 750 MG TAB PO STA (02:43)
--- NOTE | 2018-01-06 02:44 | ED ---
Abdominal Pain HPI - General Chief Complaint: Abdominal Pain Stated Complaint: abd pain Time Seen by Provider: 01/06/18 00:41 Source: patient Mode of arrival: EMS Limitations: no limitations - History of Present Illness Initial Comments: This patient is an 87-year-old man with history. As diverticulitis, who states that he is having some pain in the left lower quadrant that is somewhat similar to previous episode of diverticulitis. States that the pain came on yesterday, it has come and gone, and currently he states that it has gone away, but the pain is similar to previous episode. He states pain is somewhat dull or vague, gets worse if he presses on the abdomen, and he has not discovered any relieving factors. No coming symptoms. MD Complaint: abdominal pain Onset/Timin -: days(s) Location: LLQ Migration to: no migration Severity: moderate Quality: dull Consistency: intermittent Improves With: nothing Worsens With: nothing Associated Symptoms: denies other symptoms - Related Data Home Medications Medication Instructions Recorded Confirmed Clopidogrel [Plavix] 75 mg PO DAILY 02/01/17 01/06/18 Losartan Potassium [Cozaar] 25 mg PO DAILY 02/01/17 01/06/18 Saw [place] 500 mg PO DAILY 02/01/17 01/06/18 metFORMIN HCL [Glucophage] 500 mg PO DAILY 02/01/17 01/06/18 Multivitamins, Thera [Multivitamin 1 tab PO DAILY 03/08/17 01/06/18 (formulary)] Omeprazole [PriLOSEC] 20 mg PO AC-BRKFST 03/08/17 01/06/18 LORazepam [Ativan] 0.5 mg PO DAILY 01/06/18 01/06/18 Previous Rx's Medication Instructions Recorded Ciprofloxacin HCl [Cipro] 500 mg PO Q12HR #14 tablet 01/06/18 metroNIDAZOLE [Flagyl] 500 mg PO TID #21 tab 01/06/18 Allergies Allergy/AdvReac Type Severity Reaction Status Date / Time No Known Allergies Allergy Verified 08/22/17 14:28 Review of Systems ROS Statement: Those systems with pertinent positive or pertinent negative responses have been documented in the HPI. ROS Other: All systems not noted in ROS Statement are negative. Constitutional: Denies: fever, chills Respiratory: Denies: cough, dyspnea Cardiovascular: Denies: chest pain, edema Gastrointestinal: Reports: abdominal pain. Denies: nausea, vomiting, diarrhea, constipation, melena, hematochezia Genitourinary: Denies: dysuria, hematuria Musculoskeletal: Denies: back pain Skin: Denies: rash Neurological: Denies: headache, weakness, numbness Past Medical History Past Medical History: Cancer, CVA/TIA, Diabetes Mellitus, Hyperlipidemia, Hypertension, Pneumonia, Renal Disease, Sleep Apnea/CPAP/BIPAP Additional Past Medical History / Comment(s): Neuropathy, TIA, VARICOSE VEINS, SKIN CANCER, TOLD IN PAST HE HAD CHF BUT ANOTHER DR TOLD HIM NO. PNE X6, BLEEDING ULCER AGE 17. HAD PNE AND SHINGLES VACCINE BUT NOT SURE OF DATES. History of Any Multi-Drug Resistant Organisms: None Reported Past Surgical History: Orthopedic Surgery Additional Past Surgical History / Comment(s): Surgery on left wrist/LT ARM FOR skin ca .JOSH CATARACTS, COLONOSCOPY/POLYPS Past Anesthesia/Blood Transfusion Reactions: No Reported Reaction Past Psychological History: No Psychological Hx Reported Smoking Status: Never smoker Past Alcohol Use History: None Reported Past Drug Use History: None Reported - Past Family History Mother Family Medical History: Cancer Additional Family Medical History / Comment(s): CANCER (GALL BLADDER) Father Family Medical History: CVA/TIA General Exam Limitations: no limitations General appearance: alert Head exam: Present: atraumatic Eye exam: Present: normal appearance. Absent: scleral icterus, conjunctival injection Neck exam: Present: normal inspection, full ROM Respiratory exam: Present: normal lung sounds bilaterally. Absent: respiratory distress, wheezes, rales, rhonchi, stridor Cardiovascular Exam: Present: regular rate, normal rhythm, normal heart sounds. Absent: systolic murmur, diastolic murmur, rubs, gallop GI/Abdominal exam: Present: soft, tenderness (There is mild left lower quadrant tenderness no rebound or guarding), normal bowel sounds. Absent: distended, guarding, rebound, rigid, mass, pulsatile mass Extremities exam: Present: normal inspection, normal capillary refill. Absent: pedal edema, calf tenderness Back exam: Present: normal inspection. Absent: CVA tenderness (R), CVA tenderness (L) Neurological exam: Present: alert Skin exam: Present: warm, dry, intact, normal color. Absent: rash Course Vital Signs 01/06/18 01/06/18 01/06/18 00:39 02:15 04:03 Temperature 97.6 F 98.7 F 97.8 F Pulse Rate 67 73 73 Respiratory 20 18 18 Rate Blood Pressure 145/74 126/84 145/81 O2 Sat by Pulse 94 L 97 99 Oximetry Medical Decision Making - Lab Data Result diagrams: 01/06/18 00:55 01/06/18 00:55 Lab Results 01/06/18 01/06/18 01/06/18 Range/Units 00:55 00:55 01:49 WBC 10.9 H (3.8-10.6) k/uL RBC 4.64 (4.30-5.90) m/uL Hgb 14.5 (13.0-17.5) gm/dL Hct 41.7 (39.0-53.0) % MCV 89.8 (80.0-100.0) fL MCH 31.3 (25.0-35.0) pg MCHC 34.8 (31.0-37.0) g/dL RDW 13.8 (11.5-15.5) % Plt Count 334 (150-450) k/uL Neutrophils % 77 % Lymphocytes % 10 % Monocytes % 7 % Eosinophils % 4 % Basophils % 0 % Neutrophils # 8.4 H (1.3-7.7) k/uL Lymphocytes # 1.1 (1.0-4.8) k/uL Monocytes # 0.7 (0-1.0) k/uL Eosinophils # 0.4 (0-0.7) k/uL Basophils # 0.0 (0-0.2) k/uL Sodium 144 (137-145) mmol/L Potassium 4.6 (3.5-5.1) mmol/L Chloride 107 (98-107) mmol/L Carbon Dioxide 21 L (22-30) mmol/L Anion Gap 16 mmol/L BUN 28 H (9-20) mg/dL Creatinine 1.30 H (0.66-1.25) mg/dL Est GFR (CKD-EPI)AfAm 56 (>60 ml/min/1.73 sqM) Est GFR (CKD-EPI)NonAf 49 (>60 ml/min/1.73 sqM) Glucose 83 (74-99) mg/dL Calcium 9.7 (8.4-10.2) mg/dL Total Bilirubin 0.6 (0.2-1.3) mg/dL AST 37 (17-59) U/L ALT 31 (21-72) U/L Alkaline Phosphatase 49 (38-126) U/L Total Protein 7.5 (6.3-8.2) g/dL Albumin 4.3 (3.5-5.0) g/dL Amylase 78 (30-110) U/L Lipase 108 (23-300) U/L Urine Color Light Yellow Urine Appearance Clear (Clear) Urine pH 5.0 (5.0-8.0) Ur Specific [place] 1.011 (1.001-1.035) Urine Protein Negative (Negative) Urine Glucose (UA) Negative (Negative) Urine Ketones Negative (Negative) Urine Blood Small H (Negative) Urine Nitrite Negative (Negative) Urine Bilirubin Negative (Negative) Urine Urobilinogen <2.0 (<2.0) mg/dL Ur Leukocyte Esterase Negative (Negative) Urine RBC 3 (0-5) /hpf Urine WBC <1 (0-5) /hpf Ur Squamous Epith Cells <1 (0-4) /hpf Urine Mucus Rare H (None) /hpf Disposition Clinical Impression: Diverticulitis Disposition: HOME SELF-CARE Condition: Good Instructions: Diverticulitis (ED) Prescriptions: Ciprofloxacin HCl [Cipro] 500 mg PO Q12HR #14 tablet metroNIDAZOLE [Flagyl] 500 mg PO TID #21 tab Is patient prescribed a controlled substance at d/c from ED?: No Referrals: Donny Pacheco MD [Primary Care Provider] - 1-2 days
[2018-01-06 04:04] VITALS: BP 145/81; TEMP 97.8
== END 2018-01-06 04:04 | disposition home or self-care (01) ==
LOC: EC 00:34
DX: K57.92 Diverticulitis of intestine, part unspecified, without perforation or abscess without bleeding (principal); I10 Essential (primary) hypertension; E11.40 Type 2 diabetes mellitus with diabetic neuropathy, unspecified; G47.30 Sleep apnea, unspecified; Z79.02 Long term (current) use of antithrombotics/antiplatelets; Z79.84 Long term (current) use of oral hypoglycemic drugs; Z79.899 Other long term (current) drug therapy; Z86.73 Personal history of transient ischemic attack (TIA), and cerebral infarction without residual deficits; Z85.828 Personal history of other malignant neoplasm of skin; Z98.890 Other specified postprocedural states; Z99.89 Dependence on other enabling machines and devices; Z80.0 Family history of malignant neoplasm of digestive organs
CPT/HCPCS: 36415; 74176; 80053; 81001; 82150; 83690; 85025; 96365; 99284

== ENCOUNTER 2018-05-19 12:41 | Emergency (ER) | payer MEDICARE, BC ==
[2018-05-19] MEDS ORDERED: SODIUM CHLORIDE 0.9% 1,000 ML IV STA ×2 (13:14→15:02)
[2018-05-19] MEDS ORDERED: ACETAMINOPHEN TAB 500 MG TAB PO STA (13:15)
--- NOTE | 2018-05-19 13:35 | ED ---
General Adult HPI - General Chief complaint: Back Pain/Injury Stated complaint: back pain Time Seen by Provider: 05/19/18 12:50 Source: patient, EMS, RN notes reviewed Mode of arrival: EMS Limitations: no limitations - History of Present Illness Initial comments: 87-year-old male with medical history of CVA, diabetes, hypertension, renal disease presents to the emergency department for multiple complaints. Patient states "kidney pain" brought him into the emergency department. 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 Patient states he was having low back pain yesterday starting about 10 PM. He states that movement seemed to make the pain worse and that putting a pillow under his knees seemed to make the pain better. Patient denies history of chronic back pain. Patient denies history of kidney stones. Patient states it was equally painful on both sides. Patient states the pain has completely resolved in the low back at about 10 am this morning. He currently rates his pain as a 0/0 but still wanted to be evaluated in case it happened again. Patient denies any shooting pain down the lower legs and states he has chronic neuropathy. Patient denies any bladder or bowel changes. He denies any numbness of the groin or buttock. Patient also states he had intermittent chest pains 2 days ago which has since resolved. He describes the pain as a "twinge." He states it would last for a few seconds and then resolve. Patient denies any residual chest pain in the past two days. Patient denies any shortness of breath or pain with inspiration. Patient denies any radiating pain down the arms. Patient denies any past history of PR. Patient was once diagnosed with CHF but then told he did not have CHF. Patient denies any nausea or vomiting. Patient denies any abdominal pain. Patient denies any urinary symptoms or pain with urinating. Patient has no other complaints at this time including shortness of breath, abdominal pain, nausea or vomiting, headache, or visual changes. - Related Data Home Medications Medication Instructions Recorded Confirmed Clopidogrel [Plavix] 75 mg PO DAILY 02/01/17 05/19/18 Losartan Potassium [Cozaar] 25 mg PO DAILY 02/01/17 05/19/18 Saw [place] 500 mg PO DAILY 02/01/17 05/19/18 metFORMIN HCL [Glucophage] 500 mg PO DAILY 02/01/17 05/19/18 Multivitamins, Thera [Multivitamin 1 tab PO DAILY 03/08/17 05/19/18 (formulary)] Omeprazole [PriLOSEC] 20 mg PO DAILY 03/08/17 05/19/18 Atorvastatin Calcium [Lipitor] 5 mg PO DAILY 05/19/18 05/19/18 Eye Lubricant Combination No.1 1 applic BOTH EYES HS 05/19/18 05/19/18 [[place]] Loratadine [Claritin] 10 mg PO DAILY 05/19/18 05/19/18 Allergies Allergy/AdvReac Type Severity Reaction Status Date / Time No Known Allergies Allergy Verified 05/19/18 13:22 Review of Systems ROS Statement: Those systems with pertinent positive or pertinent negative responses have been documented in the HPI. ROS Other: All systems not noted in ROS Statement are negative. Past Medical History Past Medical History: Cancer, CVA/TIA, Diabetes Mellitus, Hyperlipidemia, Hypertension, Pneumonia, Renal Disease, Sleep Apnea/CPAP/BIPAP Additional Past Medical History / Comment(s): Neuropathy, TIA, VARICOSE VEINS, SKIN CANCER, TOLD IN PAST HE HAD CHF BUT ANOTHER DR TOLD HIM NO. PNE X6, BLEEDING ULCER AGE 17. HAD PNE AND SHINGLES VACCINE BUT NOT SURE OF DATES. History of Any Multi-Drug Resistant Organisms: None Reported Past Surgical History: Orthopedic Surgery Additional Past Surgical History / Comment(s): Surgery on left wrist/LT ARM FOR skin ca .JOSH CATARACTS, COLONOSCOPY/POLYPS Past Anesthesia/Blood Transfusion Reactions: No Reported Reaction Past Psychological History: No Psychological Hx Reported Smoking Status: Never smoker Past Alcohol Use History: None Reported Past Drug Use History: None Reported - Past Family History Mother Family Medical History: Cancer Additional Family Medical History / Comment(s): CANCER (GALL BLADDER) Father Family Medical History: CVA/TIA General Exam Limitations: no limitations General appearance: alert, in no apparent distress Head exam: Present: atraumatic, normocephalic, normal inspection Eye exam: Present: normal appearance, PERRL, EOMI. Absent: scleral icterus, conjunctival injection, nystagmus, periorbital swelling ENT exam: Present: normal exam, normal oropharynx, mucous membranes moist, TM's normal bilaterally, normal external ear exam Neck exam: Present: normal inspection, full ROM. Absent: tenderness, meningismus, lymphadenopathy Respiratory exam: Present: normal lung sounds bilaterally. Absent: respiratory distress, wheezes, rales, rhonchi, stridor Cardiovascular Exam: Present: regular rate, normal rhythm, normal heart sounds. Absent: systolic murmur, diastolic murmur, rubs, gallop, clicks GI/Abdominal exam: Present: soft, normal bowel sounds. Absent: distended, tenderness, guarding, rebound, rigid Extremities exam: Present: full ROM (full ROM of BLE), normal capillary refill ( cap refill < 2 seconds in BLE and pedal pulse 2+), other (sensation equal in BLE , diminished in distal lower extremities due to neuropathy (chronic)) Back exam: Present: other (patient ambulatory in the emergency department). Absent: full ROM (Patient able to flex about 30 degrees and extend to a neutral standing position.), CVA tenderness (R), CVA tenderness (L), paraspinal tenderness, vertebral tenderness (no tenderness to the lumbar spine in the low back ) Neurological exam: Present: alert, oriented X3, CN II-XII intact, normal gait Psychiatric exam: Present: normal affect, normal mood Course Vital Signs 05/19/18 05/19/18 05/19/18 12:43 15:14 17:07 Temperature 100.2 F H 98.8 F 97.8 F Pulse Rate 77 52 L 57 L Respiratory 18 20 18 Rate Blood Pressure 131/65 127/69 133/74 O2 Sat by Pulse 95 95 98 Oximetry Medical Decision Making - Medical Decision Making 87-year-old male presents to the emergency department for chief complaint of low back pain. Patient states the pain lasted from about 10 PM last night until about 10 AM this morning. Denies falls or injuries. Patient states pain has completely resolved but he wanted to be evaluated regardless. Patient has a history of CKD and thought maybe this was kidney related but patient demonstrates pain to the low lumbar area. On exam patient is ambulatory and standing in the emergency department. He has no lumbar spine tenderness or paraspinal tenderness he currently rates his pain at a 0/0. Capillary refill less than 2 seconds and pedal pulse 2+ bilat. Patient has chronic neuropathy so sensation is somewhat diminished in lower extremities. Patient also complained of intermittent twinging chest pain 2 days ago and states he has not had any other pain since that time. No shortness of breath or pain with inspiration. Patient had a temp of 100.2 in the emergency department and was given Tylenol which decreased temperature. CBC showed no evidence of a white count. No SIRS criteria met but blood cultures were ordered regardless. Urine shows no evidence of infection but will be cultured. X-ray of the chest showed a bilateral infiltrate and small effusion correlated for mild venous congestion. Patient denies cough or shortness of breath. I did attempt to contact Dr. Caldwell to discuss reading but he had left for the day. I did compare todays chest x-ray to past chest x-ray with Dr. Potter and no changes were evident. At this time we do not see a pneumonia. Although chest pain was intermittent over 2 days ago cardiac workup was ordered. Cardiac panel negative and troponin 0.020. Creatinine 1.5 which is consistent with past readings on CMP. Otherwise CMP unremarkable. No findings evident on CT abdomen and pelvic. Patient expresses wishes to go home. He states his pain has resolved at this time and he would rather monitor at home. Patient's son feels comfortable with this. I did discuss returning if patient has high temperatures and he states he will check them frequently. I also discussed returning if he develops cough or shortness of breath which she agrees to. He will follow up with primary care in 1-2 days. - Lab Data Result diagrams: 05/19/18 13:38 05/19/18 13:38 Lab Results 05/19/18 05/19/18 05/19/18 Range/Units 13:38 13:38 13:38 WBC 8.8 (3.8-10.6) k/uL RBC 4.36 (4.30-5.90) m/uL Hgb 13.2 (13.0-17.5) gm/dL Hct 41.1 (39.0-53.0) % MCV 94.3 (80.0-100.0) fL MCH 30.3 (25.0-35.0) pg MCHC 32.1 (31.0-37.0) g/dL RDW 13.4 (11.5-15.5) % Plt Count 237 (150-450) k/uL Neutrophils % 87 % Lymphocytes % 6 % Monocytes % 5 % Eosinophils % 0 % Basophils % 0 % Neutrophils # 7.6 (1.3-7.7) k/uL Lymphocytes # 0.5 L (1.0-4.8) k/uL Monocytes # 0.5 (0-1.0) k/uL Eosinophils # 0.0 (0-0.7) k/uL Basophils # 0.0 (0-0.2) k/uL PT (9.0-12.0) sec INR (<1.2) APTT (22.0-30.0) sec Sodium 138 (137-145) mmol/L Potassium 3.9 (3.5-5.1) mmol/L Chloride 106 (98-107) mmol/L Carbon Dioxide 23 (22-30) mmol/L Anion Gap 9 mmol/L BUN 18 (9-20) mg/dL Creatinine 1.50 H (0.66-1.25) mg/dL Est GFR (CKD-EPI)AfAm 47 (>60 ml/min/1.73 sqM) Est GFR (CKD-EPI)NonAf 41 (>60 ml/min/1.73 sqM) Glucose 155 H (74-99) mg/dL Plasma Lactic Acid Michael (0.7-2.0) mmol/L Calcium 8.8 (8.4-10.2) mg/dL Magnesium 1.9 (1.6-2.3) mg/dL Total Bilirubin 0.4 (0.2-1.3) mg/dL AST 34 (17-59) U/L ALT 48 (21-72) U/L Alkaline Phosphatase 57 (38-126) U/L Total Creatine Kinase 70 (55-170) U/L CK-MB (CK-2) 1.0 (0.0-2.4) ng/mL CK-MB (CK-2) Rel Index 1.4 Troponin I 0.020 (0.000-0.034) ng/mL Total Protein 6.5 (6.3-8.2) g/dL Albumin 3.7 (3.5-5.0) g/dL Amylase 55 (30-110) U/L Lipase 66 (23-300) U/L Urine Color Urine Appearance (Clear) Urine pH (5.0-8.0) Ur Specific [place] (1.001-1.035) Urine Protein (Negative) Urine Glucose (UA) (Negative) Urine Ketones (Negative) Urine Blood (Negative) Urine Nitrite (Negative) Urine Bilirubin (Negative) Urine Urobilinogen (<2.0) mg/dL Ur Leukocyte Esterase (Negative) Urine RBC (0-5) /hpf Urine WBC (0-5) /hpf Urine Bacteria (None) /hpf Urine Mucus (None) /hpf 05/19/18 05/19/18 05/19/18 Range/Units 13:38 13:38 14:35 WBC (3.8-10.6) k/uL RBC (4.30-5.90) m/uL Hgb (13.0-17.5) gm/dL Hct (39.0-53.0) % MCV (80.0-100.0) fL MCH (25.0-35.0) pg MCHC (31.0-37.0) g/dL RDW (11.5-15.5) % Plt Count (150-450) k/uL Neutrophils % % Lymphocytes % % Monocytes % % Eosinophils % % Basophils % % Neutrophils # (1.3-7.7) k/uL Lymphocytes # (1.0-4.8) k/uL Monocytes # (0-1.0) k/uL Eosinophils # (0-0.7) k/uL Basophils # (0-0.2) k/uL PT 11.9 (9.0-12.0) sec INR 1.3 H (<1.2) APTT 25.5 (22.0-30.0) sec Sodium (137-145) mmol/L Potassium (3.5-5.1) mmol/L Chloride (98-107) mmol/L Carbon Dioxide (22-30) mmol/L Anion Gap mmol/L BUN (9-20) mg/dL Creatinine (0.66-1.25) mg/dL Est GFR (CKD-EPI)AfAm (>60 ml/min/1.73 sqM) Est GFR (CKD-EPI)NonAf (>60 ml/min/1.73 sqM) Glucose (74-99) mg/dL Plasma Lactic Acid Michael 2.0 (0.7-2.0) mmol/L Calcium (8.4-10.2) mg/dL Magnesium (1.6-2.3) mg/dL Total Bilirubin (0.2-1.3) mg/dL AST (17-59) U/L ALT (21-72) U/L Alkaline Phosphatase (38-126) U/L Total Creatine Kinase (55-170) U/L CK-MB (CK-2) (0.0-2.4) ng/mL CK-MB (CK-2) Rel Index Troponin I (0.000-0.034) ng/mL Total Protein (6.3-8.2) g/dL Albumin (3.5-5.0) g/dL Amylase (30-110) U/L Lipase (23-300) U/L Urine Color Yellow Urine Appearance Clear (Clear) Urine pH 6.0 (5.0-8.0) Ur Specific [place] 1.014 (1.001-1.035) Urine Protein Trace H (Negative) Urine Glucose (UA) Negative (Negative) Urine Ketones Negative (Negative) Urine Blood Small H (Negative) Urine Nitrite Negative (Negative) Urine Bilirubin Negative (Negative) Urine Urobilinogen <2.0 (<2.0) mg/dL Ur Leukocyte Esterase Negative (Negative) Urine RBC 13 H (0-5) /hpf Urine WBC 1 (0-5) /hpf Urine Bacteria Rare H (None) /hpf Urine Mucus Rare H (None) /hpf Disposition Clinical Impression: Back pain Disposition: HOME SELF-CARE Condition: Good Instructions: Acute Low Back Pain (ED) Additional Instructions: Please monitor for worsening symptoms such as weakness, cough, shortness of breath, or increasing fevers and return if these occur. Take Tylenol for pain. Follow up with primary care in 1-2 days. Is patient prescribed a controlled substance at d/c from ED?: No Referrals: Donny Pacheco MD [Primary Care Provider] - 1-2 days Time of Disposition: 16:47
[2018-05-19 13:56] LABS: Basophils % (A) 0 %; Eosinophils % (A) 0 %; HCT 41.1 % (39.0-53.0); HGB 13.2 gm/dL (13.0-17.5); Lymphocytes # (A) 0.5 k/uL (1.0-4.8); Lymphocytes % (A) 6 %; MCH 30.3 pg (25.0-35.0); MCHC 32.1 g/dL (31.0-37.0); MCV 94.3 fL (80.0-100.0); Mean Platelet Volume 7.1; Monocytes # (A) 0.5 k/uL (0-1.0); Monocytes % (A) 5 %; Neutrophils # (A) 7.6 k/uL (1.3-7.7); Neutrophils % (A) 87 %; Platelet Count 237 k/uL (150-450); RBC 4.36 m/uL (4.30-5.90); RDW 13.4 % (11.5-15.5); WBC 8.8 k/uL (3.8-10.6)
[2018-05-19 14:04] LABS: INR 1.3 (<1.2); Partial Thromboplastin Time 25.5 sec (22.0-30.0); Prothrombin Time 11.9 sec (9.0-12.0)
[2018-05-19 14:09] LABS: Albumin 3.7 g/dL (3.5-5.0); Calcium 8.8 mg/dL (8.4-10.2); Magnesium 1.9 mg/dL (1.6-2.3); Potassium 3.9 mmol/L (3.5-5.1); Total Bilirubin 0.4 mg/dL (0.2-1.3); Total Protein 6.5 g/dL (6.3-8.2)
--- NOTE | 2018-05-19 14:17 | XR ---
EXAMINATION TYPE: XR chest 2V DATE OF EXAM: 05/19/2018 COMPARISON: 03/08/2017 TECHNIQUE: PA and lateral views submitted. HISTORY: Chest pain FINDINGS: Exam limited by motion artifact. There are subsegmental changes at both lung bases with cardiomegaly. Hypertrophic and degenerative change of the spine. There is atherosclerotic change of aorta. Interst itial pattern seen. IMPRESSION: 1. Bilateral infiltrate and small effusion correlate for mild venous congestion.
[2018-05-19 14:31] LABS: Troponin I 0.02 ng/mL (0.000-0.034)
[2018-05-19 15:00] LABS: Appearance,Urine Clear (Clear); Bacteria,Urine Rare /hpf; Bilirubin,Urine Negative (Negative); Blood,Urine Small (Negative); Color,Urine Yellow; Glucose,Urine (UA) Negative (Negative); Ketones,Urine Negative (Negative); Leukocyte Esterase,Urine Negative (Negative); Mucus,Urine Rare /hpf; Nitrite,Urine Negative (Negative); Protein,Urine Trace (Negative); RBC,Urine 13 /hpf (0-5); Specific Gravity,Urine 1.014 (1.001-1.035); Urobilinogen,Urine <2.0 mg/dL (<2.0); WBC,Urine 1 /hpf (0-5)
[2018-05-19] MEDS ORDERED: cefTRIAXone IN SWFI 1,000 MG/10 ML SYRINGE IVP STA (15:01)
--- NOTE | 2018-05-19 16:17 | CT ---
EXAMINATION TYPE: CT abdomen pelvis wo con DATE OF EXAM: 05/19/2018 COMPARISON: 01/06/2018 HISTORY: Bilateral flank pain CT DLP: 1085 mGycm Examination of the solid and hollow viscera is limited given the lack of contrast. FINDINGS: LUNG BASES: No evidence for nodule. No evidence for infiltrate. LIVER/GB: The gallbladder is unremarkable. No space-occupying hepatic lesion. PANCREAS: No pancreatic mass identified. No inflammatory process seen. SPLEEN: No evidence for splenomegaly. No intrasplenic lesions seen. ADRENALS: No adrenal nodules identified. No evidence for thickening. KIDNEYS: No evidence for solid renal mass. No nephrolithiasis. No hydronephrosis. Postvoid attenuatin g lesion right kidney is nonspecific. BOWEL: Appendix has a normal appearance. No evidence of bowel obstruction. No inflammatory process. M oderate sigmoid diverticulosis without evidence for diverticulitis at this time. Lymph nodes: No evidence for adenopathy greater than 1 cm. Abdominal aorta: Atheromatous changes seen. No evidence for aneurysm. Genital organs: No significant abnormality. Other: Fat-containing umbilical hernia. IMPRESSION: No acute process identified to account for the patient's symptoms.
[2018-05-19 17:08] VITALS: BP 133/74; PULSE 57; RESP 18; TEMP 97.8
== END 2018-05-19 17:08 | disposition home or self-care (01) ==
LOC: EC 12:41
DX: M54.5 Low back pain (principal); G62.9 Polyneuropathy, unspecified; R50.9 Fever, unspecified; J90 Pleural effusion, not elsewhere classified; R91.8 Other nonspecific abnormal finding of lung field; E78.5 Hyperlipidemia, unspecified; E11.22 Type 2 diabetes mellitus with diabetic chronic kidney disease; I12.9 Hypertensive chronic kidney disease with stage 1 through stage 4 chronic kidney disease, or unspecified chronic kidney disease; N18.4 Chronic kidney disease, stage 4 (severe); G47.30 Sleep apnea, unspecified; Z79.02 Long term (current) use of antithrombotics/antiplatelets; Z79.84 Long term (current) use of oral hypoglycemic drugs; Z79.899 Other long term (current) drug therapy; Z86.73 Personal history of transient ischemic attack (TIA), and cerebral infarction without residual deficits; Z85.828 Personal history of other malignant neoplasm of skin; Z98.890 Other specified postprocedural states; Z99.89 Dependence on other enabling machines and devices
CPT/HCPCS: 36415; 71046; 74176; 80053; 81001; 82150; 82550; 82553; 83605; 83690; 83735; 84484; 85025; 85610; 85730; 87040; 87086; 93005; 96360; 96361; 99284